=== PATIENT | male | born 1995 | race Caucasian/White ===

== ENCOUNTER → 2017-02-08 | Outpatient (CLI) | payer BC, OTHER ==
[~2017-02-08] MED LIST: HYDR-5688 PO; OXYC-57 PO
--- NOTE | 2017-02-08 15:11 | DIAGNOSTIC IMAGING REPORT ---
RIGHT KNEE 4 OR MORE CLINICAL HISTORY: RIGHT KNEE PAIN S/P INJURY Right trauma. Pain. COMPARISON: 07/17/2016 DISCUSSION: Osseous structures are intact. Operative changes consistent with a prior anterior cruciate ligament repair. Small joint effusion. There is no evidence for soft tissue swelling. IMPRESSION: Small joint effusion. Stable postoperative change. No acute bony abnormality. Electronically signed by: Robbie Rodriguez M.D. 02/08/2017 3:10 PM Dictated Date/Time: 02/08/2017 3:09 PM
== END | disposition home or self-care (01) ==
LOC: C.RDSM 14:17
PROVIDERS: ATTEND Family Medicine
DX: M25.561 Pain in right knee (principal)

== ENCOUNTER → 2017-02-11 | Outpatient (CLI) | payer BC, OTHER ==
--- NOTE | 2017-02-11 12:51 | DIAGNOSTIC IMAGING REPORT ---
MRI right knee LOWER EXT JOINT WITHOUT CLINICAL HISTORY: M25.561 pain TECHNIQUE: MRI multi axial acquisition COMPARISON STUDY: None FINDINGS: Findings consistent with a prior anterior cruciate ligament repair. Graft appears to be intact. Posterior cruciate ligament is unremarkable. There is a small joint effusion. There are several synechiae of the suprapatellar bursa. There is a focal contusion with a slight depression of the central lateral femoral condyle. This suggests a small concavity with the overlying articular services intact. There is also made of mild contusion of the posterior aspect of both medial as well as lateral tibial plateaus. Evaluation of menisci demonstrates the medial meniscus to be unremarkable. Lateral meniscus demonstrates a focal linear tear of its posterior horn extending to the inferior meniscal surface. Collateral ligaments appear intact. There is a mild sprain lateral collateral ligament. The medial and lateral patellar retinaculum appear intact. IMPRESSION: 1. Focal linear tear posterior horn lateral meniscus extending to the inferior meniscal surface. 2. Slight central concavity lateral femoral condyle associated with a localized bone contusion. 3. Mild bone contusions of the posterior aspects of the medial and lateral tibial plateaus. 4. Sprain lateral collateral ligament. 5. Small joint effusion with several synechiae of the suprapatellar bursa area Electronically signed by: Robbie Rodriguez M.D. 02/11/2017 12:50 PM Dictated Date/Time: 02/11/2017 12:47 PM
== END | disposition home or self-care (01) ==
LOC: C.MRI 11:32
PROVIDERS: ATTEND Family Medicine
DX: M25.561 Pain in right knee (principal)

== ENCOUNTER → 2017-03-11 | Day surgery (SDC) | payer BC, OTHER ==
[2017-02-26 09:17] VITALS: Ht 182.9 cm; Wt 80.9 kg
[~2017-03-11] VITALS: Ht 182.9 cm; Wt 80.9 kg
[~2017-03-11] MED LIST changes: +ATROPINE SULFATE 0.1 MG/ML 5ML SYR IV PRN; +BUPIVACAINE 0.25% 2.5MG/ML PF 10 ML VIAL INFIL ONE; +BUPIVACAINE 0.5 % 5 MG/1 ML MPF 30ML VIAL ONE; +CEFAZOLIN 1000MG/55 ML D5W 55 ML IV SCH; +CEFAZOLIN 2000 MG/60 ML D5W IV SCH; +CEFAZOLIN SOD 1 GM VIAL ONE; +DEXAMETHASONE SOD INJ 4 MG/ML VIAL IV PRN; +DEXAMETHASONE SOD INJ 4 MG/ML VIAL ONE; +ESMOLOL HCL 10 MG/ML 10 ML VIAL ONE; +EpHEDrine SULFATE 50MG/5ML SYR ONE; +EpHEDrine SULFATE INJ 50 MG/ML AMP IV PRN; +FENTANYL CITRATE INJ 50 MCG/1 ML 2 ML VIAL ONE; +KETOROLAC TROMETHAMINE 30 MG/ML VIAL IV. PRN; +LABETALOL HCL IV 5 MG/ML 20ML IV PRN; +LACTATED RINGER'S 1000ML 1,000 ML IV SCH; +LIDOCAINE HCL 1% MPF 2 ML VIAL ONE; +LIDOCAINE HCL 2% 2 ML VIAL (20MG/ML) ONE; +LIDOCAINE/EPINEPHRINE 1% INJ 50 ML VIAL ONE; +METOCLOPRAMIDE HCL INJ 5 MG/ML 2 ML VIAL IV PRN; +MIDAZOLAM HCL 1 MG/ML 2ML VIAL ONE; +MoRPHine SULFATE 10 MG/ML CARP/VIAL IV PRN; +MoRPHine SULFATE 2 MG/ML CARP IV PRN; +MoRPHine SULFATE 4 MG/ML 1 ML CARP\\VIAL IV PRN; +ONDANSETRON INJ 2 MG/ML 2 ML VIAL IV PRN; +ONDANSETRON INJ 2 MG/ML 2 ML VIAL ONE; +OXYCODONE/ACETAMINOPHEN 5-325 TAB PO PRN; +PHENYLEPHRINE 100MCG/ML 5ML SYR IV PRN; +PROPOFOL IV EMULSION 10 MG/ML 20 ML VIAL IV ONE; +ROPIVACAINE 0.5% 5 MG/ML 30 ML VIAL ONE; +SODIUM CHLORIDE 0.9% 1000ML 1,000 ML IV SCH
--- NOTE | 2017-03-11 06:54 | History & Physical Bridge Note ---
H&P Re-Evaluation Bridge Note: I have examined the patient, reviewed the History & Physical and in the interval since the performance of the History & Physical I have noted the following changes of clinical significance: No changes noted
--- NOTE | 2017-03-11 12:46 | [facility] Post Operative Brief Note ---
Immediate Operative Summary Operative Date Mar 11, 2017. Pre-Operative Diagnosis Right knee lateral meniscus tear, ACL graft rupture Post-Operative Diagnosis same, medial meniscus tear Procedure(s) Performed Right Knee Arthroscopic Partial Lateral Meniscectomy, Reconstruction Anterior Cruciate Ligament Revision Reconstruction With Patellar Tendon Autograft Surgeon Dr Jay [employer] Faculty Member Surgeon(s) Natasha Mar PA-C, dahiana black, fellow Estimated Blood Loss 25 cc Findings medial and lateral meniscus tears, torn acl graft Specimens none Drains 0 Anesthesia LMA with block Complication(s) None Disposition Recovery Room / PACU
--- NOTE | 2017-03-11 12:51 | Discharge Instructions-SurgCtr ---
Discharge Instructions Date of Service Mar 11, 2017. Visit Reason for Visit: Right Knee Lateral Meniscus Tear, Acl Graft Ruptur Discharge Discharge Diagnosis / Problem: Right knee lateral meniscus tear, ACL graft rupture Discharge Goals Goal(s): Decrease discomfort, Improve function, Increase independence Activity Recommendations Activity Limitations: per Instructions/Follow-up section Weightbearing Status: Left weightbearing (as tolerated), Right partial Anesthesia . Post Anesthesia Instructions: If you have had General Anesthesia or IV Sedation: * Do not drive today. * Resume driving when surgeon permits. * Do not make important decisions or sign legal documents today. * Call surgeon for: 1. Temperature elevations greater than 101 degrees F. 2. Uncontrollable pain. 3. Excessive bleeding. 4. Persistent nausea and vomiting. 5. Medication intolerance (nausea, vomiting or rash). * For nausea and vomiting use only clear liquids such as: tea, soda, bouillon until nausea subsides, then gradually increase diet as tolerated. * If you have any concerns or questions, call your surgeon's office. If physician is unavailable and it is an emergency, call 911 or go to the nearest emergency room. . Instructions / Follow-Up Instructions / Follow-Up The following instructions are a useful guide to questions you may have after your Anterior Cruciate Ligament Reconstruction surgery. If you have any questions contact the office at . ACTIVITY RECOMMENDATIONS: * Heavy manual labor is not permitted until 4-6 months after surgery. * Sports are not permitted until 6-9 months after surgery. * Return to activity is individualized. * DRIVING: Driving is not permitted until 3-4 weeks after surgery at a minimum. Please ask your doctor when it is safe to resume driving. If you have an automatic vehicle and your left leg has been operated on, then you may begin driving as soon as you are comfortable and can drive safely. * BATHING: You may shower or sponge-bathe immediately after surgery. The dressing will need to be covered with a plastic bag or plastic wrap until the dressing is changed on the fourth or fifth day after surgery. Once the dressing has been changed on the fourth or fifth day after surgery, you may shower and get the incision wet. * Wash with regular soap and water. * Do not bathe (submerge the incision), soak, swim or use a hot tub until the incision is completely healed over with normal skin and the doctor has given the OK to proceed. * There is no need to apply any ointments, powders or salves to your incision. * Do not apply alcohol or hydrogen peroxide directly to the incision. Diluted peroxide (50:50 mixture with sterile saline) may be used to clean dried blood from around the incision area. WORK/SCHOOL: * You may return to sedentary work or school when you are feeling comfortable. This is usually 3-7 days after surgery. * Expect increased discomfort with increased activity. Continue to elevate and ice the leg as much as possible. DIET: * Resume previous diet. MEDICATIONS: * You will have a prescription for pain medication and an anti-inflammatory medication after surgery. Use the pain pills for severe pain and the anti-inflammatory for less severe pain. * Once the pain pills have run out, try to use the anti-inflammatory. If this is not effective then contact the office for assistance. * The pain medication may cause nausea, constipation and sleepiness. You should see how they affect you before driving or similar activity. * The anti-inflammatory may cause stomach upset and bleeding. If this occurs, let your doctor know immediately . * Some patients may need blood clot prevention. This can be done with either a pill or a simple shot. Your doctor will advise you on when to begin these medications and how to take them. * Do not take aspirin or other anti-inflammatory products (i.e. Advil or Aleve ) if taking blood thinner medication. * Take a stool softener like Colace or a stimulant like Senokot to prevent constipation. SPECIAL CARE INSTRUCTIONS: The following instructions are a useful guide to questions you may have after your surgery. If you have any questions contact the office at . ICE: * You have the option of an ice cooler, gel packs or ice bags. * If you have an ice cooler, refer to the instructions for that device. * If you do not have an ice cooler, then you will need to use ice bags or gel packs. * Do not apply ice directly to the skin. * Use a thin dressing or stockinet between the skin and ice bag. * Apply ice for 20-30 minutes and repeat every 2-4 hours. This is especially important for the first 7-10 days after surgery. * Once the pain improves, use ice as needed. * The ice cooler can be used continuously. ELEVATION: * Keep your leg elevated at or above the level of your heart as much as possible. * Expect some increased discomfort and swelling if you are standing for any length of time. * When lying down, avoid placing anything under your knee. Rather, prop your leg up by placing several pillows under your heel or calf. DRESSING: * Your dressing will be changed at your first therapy appointment approximately 4-5 days after surgery. * Band-Aids, tape strips or gauze may be applied. You may then change your dressing daily. * Always wash your hands prior to touching the incision area. * Reapply dressing followed by the Tim wrap or Tubi-road machinery inspector stockinet, ice cooling pad and then the brace. * Once the stitches are removed, you may leave the wound open to air or cover with an Tim Bandage or Tubi-road machinery inspector stockinet. * If you have been given a white elastic stocking (JOSE hose), wear as much as possible for the first 1-3 weeks depending on swelling. * Expect some bloody drainage for the first few days after surgery. * Leave the tape strips in place for 5-7 days. * Band-Aids and gauze may be changed daily. CRUTCHES: * You will need to use crutches after surgery. * Until your first doctor's appointment, you must use your crutches at all times when walking and should put no more than 50% of your normal weight on the surgical leg. * After your first doctor's appointment, you may gradually progress to full weight bearing and discontinue crutches as tolerated under the guidance of your therapist. * If you have had a microfracture procedure done, you may be advised to be non- weight bearing for up to 6 weeks. BRACE: * After surgery, you will be placed into a range of motion brace locked with your leg straight. This brace is to be worn at all times when walking (even with the crutches) and sleeping until your first doctors appointment. * The brace may be removed for therapy. * After your first therapy appointment, your therapist will open the brace to allow bending of the knee once your muscles are working better. * Until your first doctor's appointment, you should sleep with your brace locked with your knee fully straight. * If you have chosen to use a functional ACL brace then this brace will be supplied about 2-3 months after your surgery. During that time, you will attend therapy 2- 3 times per week. You will also need to do daily exercises for range of motion and strength as instructed. PROBLEMS/QUESTIONS: * If you have any problems such as severe pain, numbness, tingling or high fevers or if you have any questions, please contact the office at [phone]. * It is not uncommon to have some numbness and tingling after the surgery especially if you have had a nerve block done. This should gradually improve over the first 1- 2 days. If this persists longer or worsens then contact the office. FOLLOW UP VISIT: * If not already scheduled, please call the office at to schedule follow-up appointments for approximately 10 days and one month after surgery followed by monthly appointments thereafter. Diet Recommendations Home Diet: no limitations, resume previous diet Procedures Procedures Performed: Right Knee Arthroscopic Partial Lateral Meniscectomy, Reconstruction Anterior Cruciate Ligament Revision Reconstruction With Patellar Tendon Autograft Pending Studies Studies pending at discharge: no Medical Emergencies . Who to Call and When: Medical Emergencies: If at any time you feel your situation is an emergency, please call 911 immediately. . Non-Emergent Contact Non-Emergency issues call your: Surgeon Call Non-Emergent contact if: temperature is above 101.5, your pain is not controlled, your pain is concerning you, wound has increased drainage, you have any medication questions . . "Provider Documentation" section prepared by Nohemy Mar.
[2017-03-11] MEDS: FENTANYL CITRATE INJ 50 MCG/1 ML 2 ML VIAL IV PRN ×3 (12:58→13:14)
--- NOTE | 2017-03-11 12:59 | [facility] Operative Report ---
Operative Report Operative Date Mar 11, 2017. Pre-Operative Diagnosis Right knee lateral meniscus tear, ACL graft rupture Post-Operative Diagnosis Right knee lateral meniscus tear, ACl graft rupture; medial meniscus tear Procedure(s) Performed Right knee arthroscopy, Revision ACL reconstruction with patellar tendon autograft, Partial lateral menisectomy, chondroplasty of patella Surgeon Dr Jay [employer] Brus[employer] Assembler Surgeon(s) Natasha Mar PA-C, dahiana black, fellow Estimated Blood Loss 25 cc Findings lateral meniscus tear, medial meniscus tear, ACL graft tear Specimens none Drains 0 Anesthesia LMA with block Complication(s) None Disposition Recovery Room / PACU (stable) Indications Patient is a 21 year old male, s/p injury to right knee rupturing his ACL graft. X-rays/MRI obtained, found to have a right ACL graft tear and lateral meniscus tear. Surgical intervention recommended. Risks/complications discussed, informed consent obtained. Description of Procedure Patient was taken to the operating room, given IV Ancef for surgical prophylaxis. He was given general anesthesia with peripheral nerve block. Time out performed, prepped and draped in routine sterile fashion. I was present the entire case, please see Dr. Jay's operative report for further detail. Patient was awakened and taken to the recovery room in stable condition. I attest to the content of the Intraoperative Record and any orders documented therein. Any exceptions are noted below.
--- NOTE | 2017-03-11 13:06 | Anesthesia Progress Nt - [facility] ---
Anesthesia Post Op Note Date & Time Mar 11, 2017 at 13:05 Vital Signs Pain Intensity: 7.0 Vital Signs Past 12 Hours Date Time Temp Pulse Resp B/P Pulse Ox O2 Delivery O2 Flow Rate FiO2 03/11/17 12:47 37.3 97 12 140/94 99 Diffusion Mask 6 03/11/17 08:19 131/73 03/11/17 08:01 95/68 03/11/17 08:00 71 26 03/11/17 08:00 73 26 100 03/11/17 07:59 68 26 03/11/17 07:59 68 26 100 03/11/17 07:55 132/70 03/11/17 07:54 70 22 03/11/17 07:54 74 22 100 03/11/17 07:50 132/74 03/11/17 07:49 67 16 100 03/11/17 07:49 66 16 03/11/17 07:45 130/90 03/11/17 07:44 62 22 96 03/11/17 07:44 63 22 03/11/17 07:40 124/70 03/11/17 07:39 67 24 96 03/11/17 07:39 66 24 03/11/17 07:35 127/73 03/11/17 07:34 67 21 100 03/11/17 07:34 67 21 03/11/17 06:47 36.8 64 14 132/70 100 Room Air 03/11/17 06:34 131/77 Notes Mental Status: alert / awake / arousable, participated in evaluation Pt Amnestic to Procedure: Yes Nausea / Vomiting: adequately controlled Pain: adequately controlled Airway Patency, RR, SpO2: stable & adequate BP & HR: stable & adequate Hydration State: stable & adequate Anesthetic Complications: no major complications apparent
[2017-03-11 14:01] VITALS: TEMP 37
[2017-03-11 14:47] VITALS: BP 123/79; PULSE 59; O2SAT 99
--- NOTE | 2017-03-11 16:11 | OPERATIVE REPORT ---
DATE OF OPERATION: 03/11/2017 PREOPERATIVE DIAGNOSIS: Failed right knee ACL graft with lateral meniscus tear. POSTOPERATIVE DIAGNOSES: Same plus patellar chondrosis and a partial thickness nonoperative medial meniscus tear. PROCEDURES: Right knee arthroscopy, partial lateral meniscectomy, revision ACL reconstruction with patellar tendon autograft, patellar chondroplasty and healing stimulation of medial meniscus tear. SURGEON: Dr. Jay. PHONE OPERATOR: Alan Beverly MD, fellow. SECOND PHONE OPERATOR: Nohemy Mar PA-C ANESTHESIA: Laryngeal mask with peripheral nerve block. BRIEF HISTORY: The patient is a 21-year-old male, [employer], status post lateral meniscus repair all-inside technique and an ACL reconstruction using RetroDrill technique with quadrupled semitendinosis autograft. He was doing well until several weeks ago when he had a reinjury to his knee. The clinical examination was consistent with a failed ACL graft. The MRI demonstrated failed ACL graft and a complex lateral meniscus tear. Treatment options, risks and benefits were discussed and he elected to proceed with operative intervention. PROCEDURE IN DETAIL: Informed consent was obtained. The patient was identified as Kavin Fischer. He identified the operative site as the right knee. I marked it with my initials. A preop surgical time out was performed. A preop dose of IV antibiotics was given. He was taken to the operating room and positioned supine on the operating room table. The anesthetic was administered by the anesthesiologist along with the block. Tourniquet was applied to the right thigh. A lateral post was used for stressing the knee. The entire right lower extremity was prepped and draped in the usual sterile fashion. DVT prophylaxis will be done with early mobility postoperatively. The exam under anesthesia showed range of motion 2/0/135 equal to the opposite side and a small effusion. He had 1+ LCL laxity equal bilaterally. Negative posterior drawer and MCL laxity. He had a 2+ positive Russ in the right knee with an indistinct endpoint and a grade 2 pivot shift. The patient had the surgery begin by establishing inferolateral viewing portal, superolateral outflow portal, and inferomedial working portal. Diagnostic arthroscopy was then performed. There were no loose bodies. The medial and lateral gutters were unremarkable with the exception of a meniscal fragment in the lateral gutter from the lateral meniscus tear. The trochlea and patella were normal with the exception of some grade 2 chondrosis over 0.5 cm in diameter, medial facet and median ridge. Chondroplasty was performed to remove unstable fragments. The retropatellar fat pad and ligamentum mucosum had been previously resected and further resection of the fat pad was performed as necessary. The suprapatellar pouch was normal. The medial compartment showed normal articular surfaces. The posteromedial compartment showed some evidence of prior peripheral capsular injury. There was a partial thickness femoral-sided tear, 5-7 mm in size. This was located at the red-white junction of the meniscus. It was stable and only on the superior surface. The meniscal roots were intact. I used the shaver and a rasp to abrade the parameniscal synovium to potentially increase healing. I also abraded the tear area gently. In the lateral compartment, the articular surfaces were normal. The meniscal roots were intact. There was a complex tear of the lateral meniscus. The tear looked like a horizontal cleavage that began a centimeter posterior to the popliteus and extended 0.5 cm anterior to the popliteus. This tear was in the horizontal plane, but then ruptured in half, yielding the aforementioned fragment. There was about 50% of the meniscal thickness and about 7 or so millimeter of width available through the popliteal hiatus. The meniscus was debrided to remove the unstable fragments and remainder was left in situ. Posterolateral compartment showed a small fibrous nodule posteriorly, likely from the prior surgery, which was debrided with a shaver. The ACL was examined and found to be completely torn. There were shredded fibers of ACL noted in the notch. The ACL was thoroughly debrided. The soft tissue over the PCL was debrided. Soft tissue of the intercondylar notch and behind the PCL was also debrided. The ACL over the top position was delineated. A small ridge anterior to the femoral socket was debrided. Prior notchplasty had been performed. The tibial tunnel looked to be in good position based upon anatomical landmarks. The femoral tunnel also appeared to be in good position, perhaps a slight bit more posterior than the typical anatomic center of the ACL. An accessory medial portal was created. The femoral socket was cleaned out. This had a depth of about 12 mm. I cleaned out the extraneous sutures and graft material. I then, based upon anatomical landmarks about 9 mm anterior to the posterior cartilage margin, made a payal. I then measured the width of the femoral condyle from the proximal cartilage margin to the distal cartilage margin. That distance measured 26 mm. I then made another payal around the tunnel at the 13-mm payal. This corresponded to the anterior one-quarter of the prior tunnel. A guidepin was placed at the junction of the 2 hassan that I made, which had corresponded to the anatomic center of the ACL, which looked to be in good position. I then took a 7-mm reamer and inserted it into the knee and gently determined what the orientation of the tunnels were. This was all done through the accessory medial portal. The outer tunnel was in a more horizontal angle and the curved tunnel would be at a more vertical angle. If I drilled 10 mm, I believed that I would skim the posterior surface of the old tunnel and basically create a cylindrical socket rather than an oblong socket. This was in part due to the orientation and shallow nature of the prior residual tunnel. I then took a low-profile 10-mm Arthrex reamer, carefully introduced it into the knee and then checking repeatedly I drilled a socket of 30 mm in depth. I drilled to 30 as the posterior margin of the tunnel was slightly wide due to the orientation of the previous tunnel. Adding the extra depth gave me a 25-mm cylindrical socket to set my graft in. Attention was then turned to the tibia. The limb was exsanguinated with the Esmarch and tourniquet inflated to 225 mmHg. A midline longitudinal incision was made beginning at the inferior pole of the patella proceeding obliquely down towards the prior tibial incision. Full thickness flaps were elevated down to the level of the peritenon. I then dissected subperiosteally adjacent to the tibial tubercle and identified the prior metal button, which was then excised. The extraneous sutures were removed. I then took a Beath pin and inserted it through this tunnel, which exited out the tibial side intraarticularly in good position. I then overreamed this with an 8 and then a 10-mm reamer, taking care to protect the meniscal roots. The tunnel was in excellent position. Tunnel length was estimated to be at 40 mm and I felt overall that a 95-100 mm graft would be appropriate. The intra and extraarticular entrances of the tunnel were beveled with a rasp. The bony debris was cleaned out of the knee. I then opened up the peritenon. The tendon measured 36 mm in width. The central 11-12 mm of the tendon were harvested as a bone patellar tendon bone autograft with 10-mm bone plugs on either end. A shuttling suture was placed into the knee for passage of the ACL graft. The graft was taken to the back table. Overall length was 102 after trimming. The patellar block made 25 x 9 and the tibial block was 27 x 10. Payal and sutures were passed. The graft was then passed into the knee in a retrograde fashion and the patellar bone plug was fully seated within the femoral socket with about 0.5 cm sticking out the tibia. There was no roof wall or PCL impingement. The knee was placed back into the hyperflexed position, which was the position for drilling and instrumenting the femoral tunnel. Through the accessory medial portal, the graft salesperson jewelry and nitinol wire were inserted followed by an 8 x 20 round headed metal interference screw. It had excellent purchase. This was advanced to lie directly over only the bone portion of the graft. Again, there was no roof wall or PCL impingement, isometry was good, tightening 2 mm in terminal extension. The knee was then placed into 2 degrees of hyperextension. Distal tension was applied to the graft with care taken to not advance the graft into the tunnel. Graft salesperson jewelry and nitinol guidewire and an 8 x 20 fully threaded interference screw were inserted anterior to the tibial bone block. Russ was negative. The knee was cycled. Pivot shift was absent. There was excellent tension with no evidence of impingement on examining the graft. The extraneous sutures were removed. The portals were closed with 4-0 nylon. The patellar defect was bone grafted. The patellar tendon was closed loosely with 0 Vicryl. The peritenon was closed with 2-0 Vicryl running. The soft tissue over the medial tunnel was closed with 2-0 Vicryl. The subcutaneous tissues closed with 2-0 Vicryl, 4-0 Monocryl subcuticular stitch. Meticulous hemostasis with electrocautery was performed at the end of the case. A soft sterile dressing was applied along with full length Tim wrap and a hinged brace locked in extension. The patient was awakened from anesthesia without difficulty, taken to the recovery room in stable condition. There were no specimens or complications. Counts were correct at the end of the case. Blood loss was approximately 25 mL. At the conclusion of the operation, I spoke to patient's water trainer and informed him of my findings. Postoperative instructions were given. Partial weightbearing. We will rehabilitate according to the revision ACL protocol. He will receive a dose of antibiotics prior to discharge. request -[id number] due to revision nature of surgery. required additional planning, more extensive debridement due to scarring and prior surgery, increased risk, prior ACL tunnels had to be debrided and accomodated with revision surgery. I attest to the content of the Intraoperative Record and any orders documented therein. Any exceptions are noted below. MTDD
== END | disposition home or self-care (01) ==
LOC: X.SURG 06:29
PROVIDERS: ATTEND Physical Medicine & Rehabilitation Sports Medicine
DX: T84.410A Breakdown (mechanical) of muscle and tendon graft, initial encounter (principal); M23.231 Derangement of other medial meniscus due to old tear or injury, right knee; M23.201 Derangement of unspecified lateral meniscus due to old tear or injury, left knee; M22.41 Chondromalacia patellae, right knee; Y84.8 Other medical procedures as the cause of abnormal reaction of the patient, or of later complication, without mention of misadventure at the time of the procedure; G40.909 Epilepsy, unspecified, not intractable, without status epilepticus; Z88.8 Allergy status to other drugs, medicaments and biological substances; Z98.890 Other specified postprocedural states

== ENCOUNTER → 2017-03-22 | Outpatient (CLI) | payer BC, OTHER ==
[~2017-03-22] MED LIST changes: -ATROPINE SULFATE 0.1 MG/ML 5ML SYR IV PRN; -BUPIVACAINE 0.25% 2.5MG/ML PF 10 ML VIAL INFIL ONE; -BUPIVACAINE 0.5 % 5 MG/1 ML MPF 30ML VIAL ONE; -CEFAZOLIN 1000MG/55 ML D5W 55 ML IV SCH; -CEFAZOLIN 2000 MG/60 ML D5W IV SCH; -CEFAZOLIN SOD 1 GM VIAL ONE; -DEXAMETHASONE SOD INJ 4 MG/ML VIAL IV PRN; -DEXAMETHASONE SOD INJ 4 MG/ML VIAL ONE; -ESMOLOL HCL 10 MG/ML 10 ML VIAL ONE; -EpHEDrine SULFATE 50MG/5ML SYR ONE; -EpHEDrine SULFATE INJ 50 MG/ML AMP IV PRN; -FENTANYL CITRATE INJ 50 MCG/1 ML 2 ML VIAL ONE; -HYDR-5688 PO; -KETOROLAC TROMETHAMINE 30 MG/ML VIAL IV. PRN; -LABETALOL HCL IV 5 MG/ML 20ML IV PRN; -LACTATED RINGER'S 1000ML 1,000 ML IV SCH; -LIDOCAINE HCL 1% MPF 2 ML VIAL ONE; -LIDOCAINE HCL 2% 2 ML VIAL (20MG/ML) ONE; -LIDOCAINE/EPINEPHRINE 1% INJ 50 ML VIAL ONE; -METOCLOPRAMIDE HCL INJ 5 MG/ML 2 ML VIAL IV PRN; -MIDAZOLAM HCL 1 MG/ML 2ML VIAL ONE; -MoRPHine SULFATE 10 MG/ML CARP/VIAL IV PRN; -MoRPHine SULFATE 2 MG/ML CARP IV PRN; -MoRPHine SULFATE 4 MG/ML 1 ML CARP\\VIAL IV PRN; -ONDANSETRON INJ 2 MG/ML 2 ML VIAL IV PRN; -ONDANSETRON INJ 2 MG/ML 2 ML VIAL ONE; -OXYCODONE/ACETAMINOPHEN 5-325 TAB PO PRN; -PHENYLEPHRINE 100MCG/ML 5ML SYR IV PRN; -PROPOFOL IV EMULSION 10 MG/ML 20 ML VIAL IV ONE; -ROPIVACAINE 0.5% 5 MG/ML 30 ML VIAL ONE; -SODIUM CHLORIDE 0.9% 1000ML 1,000 ML IV SCH
== END | disposition home or self-care (01) ==
LOC: C.RDSM 11:56
PROVIDERS: ATTEND Physician Assistant
DX: S83.271D Complex tear of lateral meniscus, current injury, right knee, subsequent encounter (principal); X58.XXXA Exposure to other specified factors, initial encounter

== ENCOUNTER → 2018-01-10 | Outpatient (CLI) | payer BC, OTHER | END | disposition home or self-care (01) | LOC: C.RDSM 08:00 | PROVIDERS: ATTEND Physical Medicine & Rehabilitation Sports Medicine | DX: M25.551 Pain in right hip (principal) ==